=== PATIENT | female | born 1960 | race Caucasian/White ===

== ENCOUNTER 2018-12-17 13:04 | Emergency (ER) | payer OTHER ==
[~2018-12-17] VITALS: Ht 162.6 cm; Wt 140.6 kg
[2018-12-17 13:16] VITALS: BP 120/61
--- NOTE | 2018-12-17 13:30 | NUR ---
PATIENT AMBULATED TO BED 8
--- NOTE | 2018-12-17 13:46 | NUR ---
Pt c/o painful left lower rash with blisters started 2 days ago, seen by PMD yesterday and was given an ointment and "water pill" with no relief. Bilateral lower leg +4 edema with non-pitting noticed. Pt states "I have seen doctor for the water retention, but on one gave me any treatment." PATIENT STATES PAIN OF 8/10 AT THIS TIME; VSS; PATIENT POSITIONED FOR COMFORT; HOB ELEVATED; BEDRAILS UP X1; BED DOWN. ER MD MADE AWARE OF PT STATUS.
[2018-12-17] MEDS ORDERED: CLINDAMYCIN 600 MG/4 ML VIAL IM ONE (14:25)
[2018-12-17 14:45] VITALS: BP 121/53
--- NOTE | 2018-12-17 14:45 | NUR ---
Patient discharged with v/s stable. Written and verbal after care instructions given and explained. Patient alert, oriented and verbalized understanding of instructions. Ambulatory with steady gait. All questions addressed prior to discharge. ID band removed. Patient advised to follow up with PMD. Rx of Keflex, Bactrim, Motrin, and Tramadol given. Patient educated on indication of medication including possible reaction and side effects. Opportunity to ask questions provided and answered.
== END 2018-12-17 14:45 | disposition home or self-care (01) ==
LOC: MED 13:04
DX: L03.116 Cellulitis of left lower limb (principal); E11.9 Type 2 diabetes mellitus without complications
CPT/HCPCS: 96372; 99283; J3490

== ENCOUNTER 2018-12-22 19:01 | Inpatient (IN) | payer OTHER ==
[~2018-12-22] VITALS: Ht 167.6 cm; Wt 140.2 kg
[2018-12-22 19:06] VITALS: BP 134/77
--- NOTE | 2018-12-22 19:10 | NUR ---
PT TO BED 6 WITH STEADY GAIT
--- NOTE | 2018-12-22 19:15 | NUR ---
58 Y/O F PRESENTS TO THE ER C/O CELLULITIS L. LOWER LEG. PER PT "I HAD A CORTISONE SHOT AND HAD A RASH ON BILATERAL EXTREMITIES. MY RASH CLEARED UP, EXCEPT FOR MY LEFT LEG" I RUBBED HARMONY TREE OIL AND IT MADE IT WORSE. IT BLISTERED, POPPED AND STARTED TO DRAIN." PT CURRENTLY TAKING SULFAMETHOXAZONE E-TMP DS AND CEPHALEXIN CAPSULE. PT LLE WARM TO TOUCH. PAIN LEVEL 6/10, CRAMPING PAIN. NKA. MED HX: DM. SAFETY MEASURES IN PLACE. WAITING FOR ERMD TO EVALUATE PT.
--- NOTE | 2018-12-22 19:27 | NUR ---
RECEIVED PT FROM GUILLE RN PT IS AAOX4 AMBULATORY IV ON RT ARM INFUSING WELL NOT DISTRESS NOTED RELATIVE AT BED SIDE INITIAL ASSESSMENT DONE
--- NOTE | 2018-12-22 19:31 | NUR ---
Dr. Stone examining patient.
[2018-12-22] MEDS ORDERED: AMPICILLIN/SULBACTAM 3 GM VIAL IM ONE (19:40)
[2018-12-22] MEDS ORDERED: AMPICILLIN/SULBACTAM 3 GM in NACL 0.9% 100 ML IV ONE (19:50)
[2018-12-22 20:18] LABS: BASOPHILS # (AUTO) 0.1 K/uL (0.00-0.22); BASOPHILS % (AUTO) 0.9 % (0.0-2.0); EOSINOPHILS # (AUTO) 0.4 K/uL (0-0.4); EOSINOPHILS % (AUTO) 4.4 % (0.0-4.0); HEMATOCRIT 37.4 % (36-48); HEMOGLOBIN 12.5 g/dL (12.0-16.0); LYMPHOCYTES # (AUTO) 2.7 K/uL (2.5-16.5); MEAN CORPUSCULAR HEMOGLOBIN 30 pg (27-31); MEAN CORPUSCULAR HGB CONC 34 g/dL (33-37); MEAN CORPUSCULAR VOLUME 89.6 fL (80-94); MONOCYTES # (AUTO) 0.8 K/uL (0.8-1.0); MONOCYTES % (AUTO) 9.4 % (1.7-9.3); NEUTROPHILS # (AUTO) 4.5 K/uL (1.8-7.7); NEUTROPHILS % (AUTO) 53.3 % (42.2-75.2); PLATELET COUNT (AUTO) 357 K/uL (140-450); RED BLOOD CELL COUNT(AUTO) 4.18 MIL/uL (4.20-5.40); RED CELL DISTRIBUTION WIDTH 14.3 % (11.6-13.7); WHITE BLOOD COUNT (AUTO) 8.4 K/uL (4.8-10.8)
--- NOTE | 2018-12-22 20:52 | NUR ---
PT RESTING IN BED COMFORTABLY. VSS. WILL CONTINUE TO MONITOR.
[2018-12-22] MEDS ORDERED: SIMV40TA1 PO (21:08)
[2018-12-22] MEDS ORDERED: METF1000 PO (21:08)
[2018-12-22] MEDS ORDERED: PROP20TA29 PO (21:13)
[2018-12-22] MEDS ORDERED: GABA300C PO (21:13)
[2018-12-22] MEDS ORDERED: LISI5TAB18 PO (21:13)
[2018-12-22] MEDS ORDERED: DETLA4 PO (21:13)
[2018-12-22] MEDS ORDERED: FURO-572 PO (21:13)
[2018-12-22] MEDS ORDERED: METF1TAB34 PO (21:13)
--- NOTE | 2018-12-22 21:15 | NUR ---
PT AMBULATED TO RESTROOM
[2018-12-22 21:26] LABS: ANION GAP 13.5 (8-16); CARBON DIOXIDE 25.6 mmol/L (21-32); CREATININE 0.9 mg/dL (0.6-1.3); POTASSIUM 4.1 mmol/L (3.5-5.1)
[2018-12-22 21:31] LABS: ALBUMIN 3.2 g/dL (3.4-5.0); TOTAL BILIRUBIN 0.4 mg/dL (0.0-1.0)
--- NOTE | 2018-12-22 22:26 | NUR ---
PT AMBULATED TO RESTROOM
[2018-12-22] MEDS ORDERED: MORPHINE SULFATE 4 MG/ML SYR IVP PRN (22:40)
[2018-12-22] MEDS ORDERED: ONDANSETRON 4 MG/2 ML VIAL IVP PRN (22:40)
[2018-12-22] MEDS ORDERED: DEXTROSE 50% 50 ML SYR IVP PRN (22:40)
[2018-12-22] MEDS ORDERED: CLINDAMYCIN 600 MG in DEXTROSE 5% 50 ML IV SCH (23:00)
[2018-12-22 23:10] VITALS: BP 138/60
--- NOTE | 2018-12-22 23:10 | NUR ---
RECEIVED PT FROM ED VIA WHEELCHAIR; AWAKE, ALERT O X 4; WITH L LEG CELLULITIS;PT CAN AMBULATE IN THE ROOM; KEPT WATCH; WITH NS AT 75 ML HR ON THE RIGHT HAND G 22 PATENT AND INTACT. ORIENTED TO UNIT; MRSA SWAB DONE. PLACED IN LOW BED POSITION; CALL LIGHT WITHIN REACH.
--- NOTE | 2018-12-22 23:10 | NUR ---
Transfer of care AND report given to PAGE GEORGES
--- NOTE | 2018-12-22 23:14 | NUR ---
Patient will be admitted to care of Dr. Franklin. Admited to Med/Surg. Will go to room 111b. Belongings list completed. Report to PAGE Noriega
--- NOTE | 2018-12-23 00:10 | NUR ---
PT COMPLAINED OF COUGHING AND NOT ABLE TO BREATHE; PLACED O2 AT 2 LPM NC PRN; WILL CONTINUE TO MONITOR
[2018-12-23] MEDS ORDERED: CLINDAMYCIN 600 MG/4 ML VIAL ONE (00:32)
[2018-12-23] MEDS: NACL 0.9% 1,000 ML IV SCH ×3 (01:25→22:10)
[2018-12-23] MEDS: HYDROcodone/APAP 5/325 MG 1 TAB TAB PO PRN ×2 (01:30→22:10)
--- NOTE | 2018-12-23 01:30 | NUR ---
PT COMFORTABLE; NO COMPLAINTS OF RESPIRATORY DISTRESS; STATES FEELING A LOT BETTER
--- NOTE | 2018-12-23 02:50 | NUR ---
PT TRYING TO GET SOME SLEEP; BUT AWAKENS EASILY; NO COMPLAINTS AT THIS TIME WILL CONTINUE TO MONITOR
[2018-12-23 04:00] VITALS: BP 140/60
--- NOTE | 2018-12-23 04:55 | NUR ---
STILL SLEEPING COMFORTABLY, NO COMPLAINTS AT THIS TIME; WILL CONTINUE TO MONITOR
[2018-12-23] MEDS: BLOOD GLUCOSE MONITORING 1 DEV DEV FS SCH ×4 (06:37→21:00)
[2018-12-23] MEDS: INSULIN LISPRO SLIDING SCALE 100 UNITS/ML VIAL SUBQ PRN ×3 (06:38→18:25)
--- NOTE | 2018-12-23 07:18 | NUR ---
ENDORSED TO AM SHIFT NURSE. PT AWAKE, ALERT ORIENTED X 4 NOT IN RESPIRATORY DISTRESS .PT IN STABLE CONDITION AT THIS TIME. INFORMED AM NURSE PT WANTS TO HAVE ANTI-DIARRHEAL MEDS FOR HER IBS
[2018-12-23 07:35] LABS: BASOPHILS % (AUTO) 0.4 % (0.0-2.0); EOSINOPHILS # (AUTO) 0.4 K/uL (0-0.4); EOSINOPHILS % (AUTO) 5.1 % (0.0-4.0); HEMATOCRIT 36.6 % (36-48); LYMPHOCYTES # (AUTO) 2.1 K/uL (2.5-16.5); LYMPHOCYTES % (AUTO) 27.8 % (20.5-51.1); MEAN CORPUSCULAR HEMOGLOBIN 30 pg (27-31); MEAN CORPUSCULAR HGB CONC 33 g/dL (33-37); MEAN CORPUSCULAR VOLUME 90.4 fL (80-94); MONOCYTES # (AUTO) 0.7 K/uL (0.8-1.0); MONOCYTES % (AUTO) 10.1 % (1.7-9.3); NEUTROPHILS # (AUTO) 4.2 K/uL (1.8-7.7); NEUTROPHILS % (AUTO) 56.6 % (42.2-75.2); PLATELET COUNT (AUTO) 331 K/uL (140-450); RED BLOOD CELL COUNT(AUTO) 4.05 MIL/uL (4.20-5.40); RED CELL DISTRIBUTION WIDTH 14.2 % (11.6-13.7); WHITE BLOOD COUNT (AUTO) 7.4 K/uL (4.8-10.8)
--- NOTE | 2018-12-23 07:35 | NUR ---
REPORT RECEIVED FROM ATOMIC PROCESS ENGINEER NURSE, PT AWAKE ALERT, RESP EVEN UNLABORED, SKIN WARM DRY COLOR WNL, PT DENIES PAIN NOW, POC REVIEWED, PT DOES NOT WANT HER RIGHT SIDE RAIL UP, BECAUSE SHE GOES TO BATHROOM OFTEN, EDUCATED PT OF SAFETY, PT REFUSES.
[2018-12-23 07:47] LABS: ANION GAP 12.9 (8-16); CARBON DIOXIDE 25.4 mmol/L (21-32); CREATININE 0.7 mg/dL (0.6-1.3); POTASSIUM 4.3 mmol/L (3.5-5.1)
[2018-12-23 07:49] LABS: MAGNESIUM 1.8 mg/dL (1.8-2.4); PHOSPHORUS 3.9 mg/dL (2.5-4.9)
[2018-12-23 08:00] VITALS: BP 147/89
--- NOTE | 2018-12-23 08:08 | NUR ---
PATIENT HAS BEEN SCREENED AND CATEGORIZED HIGH NUTRITION RISK. PATIENT WILL BE SEEN WITHIN 1-2 DAYS OF ADMISSION. 12/23/18-12/24/[address]
[2018-12-23] MEDS: GABAPENTIN 300 MG CAP PO SCH (08:54)
[2018-12-23] MEDS: metFORMIN 500 MG TAB PO SCH ×2 (08:58→18:30)
[2018-12-23] MEDS: FUROSEMIDE 20 MG TAB PO SCH (08:58)
[2018-12-23] MEDS: LISINOPRIL 5 MG TAB PO SCH (08:58)
[2018-12-23] MEDS: PROPRANOLOL 20 MG TAB PO SCH (08:59)
[2018-12-23] MEDS ORDERED: [UNRECOGNIZED DRUG - OTHER] PO SCH (09:00)
[2018-12-23] MEDS ORDERED: PIOGLITAZONE HCL PO SCH (09:00)
[2018-12-23] MEDS ORDERED: METFORMIN HCL PO SCH (09:00)
[2018-12-23] MEDS: TOLTERODINE LA 4 MG CAPER PO SCH (09:06)
[2018-12-23] MEDS: ACETAMINOPHEN 325 MG TAB PO PRN (09:06)
[2018-12-23] MEDS: PIOGLITAZONE 15 MG TAB PO SCH (09:06)
--- NOTE | 2018-12-23 10:20 | NUR ---
PT UP AMBULATING IN ROOM WITH STEADY GAIT,
--- NOTE | 2018-12-23 14:20 | NUR ---
CONTACTED PATIENT'S PCP'S OFFICE DR. HOLLIS AT [phone], ABLE TO SPEAK TO TAYLOR. SHE PROVIDED ME WITH DEC 28, 2018 AT 1400PM. ADDR[place] TO THE CLINIC IS [address] [place] [address]. COPY OF THE APPOINTMENT PROVIDED TO THE PATIENT. Addendum: 12/28/18 at 1059 by Patience Muniz CM CONTACTED PCP'S OFFICE, ABLE TO SPEAK TO TAYLOR TO CANCEL APPOINTMENT DUE TO PATIENT IS STILL IN PATIENT. SHE STATED TO HAVE THE PATIENT TO CALL TO RESCHEDULE THE APPOINTMENT.
--- NOTE | 2018-12-23 14:20 | NUR ---
DR TEMPLE AT BEDSIDE
[2018-12-23] MEDS ORDERED: VANCOMYCIN PER PHARMACY MC PRN (14:25)
--- NOTE | 2018-12-23 15:31 | NUR ---
12/23/18 RD INITIAL ASSESSMENT COMPLETED PLEASE REFER TO NUTRITION ASSESSMENT UNDER CARE ACTIVITY FOR ESTIMATED NUTRITIONAL NEEDS. [facility]. [facility] TOL[facility] 2. FOLLOW UP WITH DIABETES NUTRITION EDUCATION 3. RD TO FOLLOW-UP 5-7 DAYS, LOW RISK FATMATA LANDA, RD
[2018-12-23 16:00] VITALS: BP 101/58
[2018-12-23] MEDS: VANCOMYCIN 1,250 MG in DEXTROSE 5% 250 ML IV SCH (18:30)
--- NOTE | 2018-12-23 18:30 | NUR ---
ADMINISTERED SCHEDULED MED PER MD ORDER, PATIENT TOLERATED WELL. MED EDUCATION PROVIDED TO PATIENT AND PATIENT VERBALIZED UNDERSTANDING. PATIENT IS TALKING ON THE PHONE AT THIS TIME. NO SIGNS OF DISTRESS NOTED. SAFETY MEASURES IN PLACE. BED IN LOW POSITION AND CALL LIGHT WITHIN REACH. INSTRUCTED PATIENT TO USE THE CALL LIGHT FOR ANY ASSISTANCE AND PATIENT WAS AWARE.
--- NOTE | 2018-12-23 19:20 | NUR ---
REPORT GIVEN TO ROLL REPAIRER NURSE, PT IN STABLE CONDITION
--- NOTE | 2018-12-23 19:26 | NUR ---
RECEIVED PT FROM GUILLE RN PT IS AAOX4 AMBULATORYIV ON RT ARM INFUSING WELL DENIES ANY PAIN I, RELATIVE AT BED SIDE INITIAL ASSESSMENT DONE
--- NOTE | 2018-12-23 22:10 | NUR ---
BLOOD SUGAR TEST 131 NOT COVERAGE PT
[2018-12-23] MEDS: SIMVASTATIN 40 MG TAB PO SCH (22:11)
[2018-12-24] VITALS: BP 101/56
--- NOTE | 2018-12-24 01:00 | NUR ---
PT SLEEPING WELL NOT DISTRESS NOTED
[2018-12-24] MEDS: NACL 0.9% 1,000 ML IV SCH (01:16)
[2018-12-24] MEDS: VANCOMYCIN 1,250 MG in DEXTROSE 5% 250 ML IV SCH ×2 (02:20→10:49)
--- NOTE | 2018-12-24 03:12 | NUR ---
PT REMAIN STABLE , VOIDING WELL PT AMBULATES TO THE RESTROOM IV ON RT HAND INFUSING WELL
--- NOTE | 2018-12-24 04:48 | NUR ---
PT VOIDING WELL NOT DITRESS NOTED IV ON RT ARM INFUSING WELL, DENIES ANY PAIN AT THIS TIME
[2018-12-24] MEDS: BLOOD GLUCOSE MONITORING 1 DEV DEV FS SCH ×4 (06:00→21:00)
[2018-12-24] MEDS: HYDROcodone/APAP 5/325 MG 1 TAB TAB PO PRN ×2 (06:04→23:22)
--- NOTE | 2018-12-24 06:08 | NUR ---
BLOOD SUGAR 149 NOT COVERAGE PT RESTING ON BED PT JULITO BE ENDORSED TO DAY SHIFT NURSE FOR CONTINUE OF CARE
[2018-12-24 07:03] LABS: BASOPHILS % (AUTO) 0.5 % (0.0-2.0); EOSINOPHILS # (AUTO) 0.3 K/uL (0-0.4); EOSINOPHILS % (AUTO) 5.6 % (0.0-4.0); HEMATOCRIT 37.4 % (36-48); HEMOGLOBIN 12.2 g/dL (12.0-16.0); LYMPHOCYTES # (AUTO) 2.1 K/uL (2.5-16.5); LYMPHOCYTES % (AUTO) 33.2 % (20.5-51.1); MEAN CORPUSCULAR HEMOGLOBIN 30 pg (27-31); MEAN CORPUSCULAR HGB CONC 33 g/dL (33-37); MEAN CORPUSCULAR VOLUME 90.9 fL (80-94); MONOCYTES # (AUTO) 0.7 K/uL (0.8-1.0); MONOCYTES % (AUTO) 11.2 % (1.7-9.3); NEUTROPHILS # (AUTO) 3.1 K/uL (1.8-7.7); NEUTROPHILS % (AUTO) 49.5 % (42.2-75.2); PLATELET COUNT (AUTO) 327 K/uL (140-450); RED BLOOD CELL COUNT(AUTO) 4.12 MIL/uL (4.20-5.40); RED CELL DISTRIBUTION WIDTH 14.1 % (11.6-13.7); WHITE BLOOD COUNT (AUTO) 6.2 K/uL (4.8-10.8)
[2018-12-24 07:18] LABS: MAGNESIUM 1.8 mg/dL (1.8-2.4); PHOSPHORUS 3.8 mg/dL (2.5-4.9)
[2018-12-24 07:19] LABS: CREATININE 0.8 mg/dL (0.6-1.3)
--- NOTE | 2018-12-24 07:28 | NUR ---
REPORT RECEIVED FROM MACHINE PACKAGING TECHNICIAN NURSE, PT RESTING QUIETLY IN NO DISTRESS, SPEAKS CLEARLY, RESP EVEN UNLABORED, DENIES PAIN OR DISCOMFORT, LEFT LEG REDNESS POC REVIEWED, NO IMMEDIATE NEEDS AT THIS TIME, LEFT LEG ELEVATED, PT REFUSES TO RAISE THE SIDE RAIL, PT EDUCATED ON SAFETY MEASURES, BUT STILL REFUSES TO GET SIDE RAILS UP. CALL DUNBAR AT BEDSIDE.
[2018-12-24 08:00] VITALS: BP 107/50
[2018-12-24] MEDS: PROPRANOLOL 20 MG TAB PO SCH (09:00)
[2018-12-24] MEDS: LISINOPRIL 5 MG TAB PO SCH (09:00)
[2018-12-24] MEDS: PIOGLITAZONE 15 MG TAB PO SCH (09:10)
[2018-12-24] MEDS: GABAPENTIN 300 MG CAP PO SCH (09:11)
[2018-12-24] MEDS: TOLTERODINE LA 4 MG CAPER PO SCH (09:11)
[2018-12-24] MEDS: metFORMIN 500 MG TAB PO SCH ×2 (09:11→17:10)
[2018-12-24] MEDS: FUROSEMIDE 20 MG TAB PO SCH (09:12)
--- NOTE | 2018-12-24 10:40 | NUR ---
SCHEDULED VANCO STARTED, IV INFUSING WELL, IV SITE WNL, PT'S DAUGHTER AT BEDSIDE, PT UP TO BATHROOM WITH STEADY GAIT.
[2018-12-24] MEDS: INSULIN LISPRO SLIDING SCALE 100 UNITS/ML VIAL SUBQ PRN ×2 (12:03→23:19)
[2018-12-24] MEDS ORDERED: MAGNESIUM OXIDE 400 MG TAB PO SCH (13:00)
[2018-12-24 16:00] VITALS: BP 104/54
--- NOTE | 2018-12-24 17:55 | NUR ---
LAB CALLED WITH VANCO TROUGH RESULTS 22.2. [facility] PHARMACIST [facility] NOTIFIED, WILL HOLD 1800 VANCO DOSE.
--- NOTE | 2018-12-24 19:20 | NUR ---
REPORT RECIEVED FROM GUILLE ABEL. pT AAOX4 IV PATENT. TATO SIFUENTES. CELLULITIS LLE. NO DISTRESS NOTED . ASSESSMENT COMPLETE
[2018-12-24 20:00] VITALS: BP 126/58
[2018-12-24] MEDS: SIMVASTATIN 40 MG TAB PO SCH (20:19)
--- NOTE | 2018-12-24 22:00 | NUR ---
PTWATCHING TV REMAIN STABLE NOT DISTRESS NOTED
[2018-12-25] VITALS: BP 110/56
--- NOTE | 2018-12-25 03:09 | NUR ---
AFTER PAIN MEDIC GIVEN PT DENIES ANY PAIN, AMBULATES TO THE RESTROOM, NOT DISTRESS NOTED
--- NOTE | 2018-12-25 04:50 | NUR ---
SPONGE BATH GIVEN LINEN CHANGED REMAIN STABLE
[2018-12-25] MEDS: BLOOD GLUCOSE MONITORING 1 DEV DEV FS SCH ×4 (06:05→21:48)
--- NOTE | 2018-12-25 06:18 | NUR ---
BLOOD SUGAR TEST 132 NOT COVERAGE PT WILL BE ENDORSED TO DAY SHIFT NURSE FOR CONTINUE OF CARE
--- NOTE | 2018-12-25 07:25 | NUR ---
REPORT RECEIVED FROM HOUSE WORKER NURSE AT BEDSIDE FOR CONTINUITY OF CARE, PT AWAKE AND ALERT, RESTING QUIETLY IN NO DISTRESS, RESPIRATIONS EVEN AND UNLABORED ON ROOM AIR, DENIES PAIN OR DISCOMFORT, NO IMMEDIATE NEEDS AT THIS TIME, LEFT LEG ELEVATED, PT REFUSES TO RAISE RIGHT SIDE RAIL, PT EDUCATED ON SAFETY MEASURES, BUT STILL REFUSES TO GET SIDE RAILS UP. UPDATED BOARD. UPDATED PATIENT ON PLAN OF CARE. SHE VERBALIZED UNDERSTANDING. IV SITE INTACT, ASYMPTOMATIC, SALINE LOCKED. CALL DUNBAR AT BEDSIDE. WILL CONTINUE TO MONITOR PATIENT.
[2018-12-25 08:00] VITALS: BP 129/69
[2018-12-25 08:21] LABS: ANION GAP 16.2 (8-16); CARBON DIOXIDE 26.1 mmol/L (21-32); CREATININE 0.7 mg/dL (0.6-1.3)
[2018-12-25 08:26] LABS: MAGNESIUM 1.9 mg/dL (1.8-2.4); PHOSPHORUS 4.1 mg/dL (2.5-4.9)
[2018-12-25 08:39] LABS: POTASSIUM 5.3 mmol/L (3.5-5.1)
[2018-12-25] MEDS: PROPRANOLOL 20 MG TAB PO SCH (08:57)
[2018-12-25] MEDS: PIOGLITAZONE 15 MG TAB PO SCH (08:57)
[2018-12-25] MEDS: LISINOPRIL 5 MG TAB PO SCH (08:58)
[2018-12-25] MEDS: FUROSEMIDE 20 MG TAB PO SCH (08:58)
[2018-12-25] MEDS: GABAPENTIN 300 MG CAP PO SCH (08:58)
[2018-12-25] MEDS: metFORMIN 500 MG TAB PO SCH ×2 (08:58→17:09)
[2018-12-25] MEDS: TOLTERODINE LA 4 MG CAPER PO SCH (08:58)
--- NOTE | 2018-12-25 08:58 | NUR ---
ORDERED MEDICATIONS GIVEN. PATIENT TOLERATING THEM WELL. NO COMPLAINTS AT THIS TIME. CALL LIGHT WITHIN REACH, WILL CONTINUE TO MONITOR PATIENT.
[2018-12-25] MEDS: HYDROcodone/APAP 5/325 MG 1 TAB TAB PO PRN ×2 (09:08→22:09)
--- NOTE | 2018-12-25 09:08 | NUR ---
PRN PAIN MEDICATION GIVEN FOR C/O PAIN OF LEFT LOWER EXTREMITY. PATIENT TOLERATING IT WELL. NO COMPLAINTS AT THIS TIME. CALL LIGHT WITHIN REACH, WILL CONTINUE TO MONITOR PATIENT.
[2018-12-25 09:58] LABS: BASOPHILS % (AUTO) 0.6 % (0.0-2.0); EOSINOPHILS # (AUTO) 0.2 K/uL (0-0.4); EOSINOPHILS % (AUTO) 4.3 % (0.0-4.0); HEMATOCRIT 35.9 % (36-48); HEMOGLOBIN 11.8 g/dL (12.0-16.0); LYMPHOCYTES # (AUTO) 1.5 K/uL (2.5-16.5); LYMPHOCYTES % (AUTO) 27.9 % (20.5-51.1); MEAN CORPUSCULAR HEMOGLOBIN 30 pg (27-31); MEAN CORPUSCULAR HGB CONC 33 g/dL (33-37); MEAN CORPUSCULAR VOLUME 90.6 fL (80-94); MONOCYTES # (AUTO) 0.6 K/uL (0.8-1.0); MONOCYTES % (AUTO) 11.2 % (1.7-9.3); PLATELET COUNT (AUTO) 297 K/uL (140-450); RED BLOOD CELL COUNT(AUTO) 3.97 MIL/uL (4.20-5.40); RED CELL DISTRIBUTION WIDTH 14.2 % (11.6-13.7); WHITE BLOOD COUNT (AUTO) 5.4 K/uL (4.8-10.8)
[2018-12-25] MEDS: VANCOMYCIN 1,250 MG in DEXTROSE 5% 250 ML IV SCH ×2 (10:03→22:00)
[2018-12-25] MEDS: INSULIN LISPRO SLIDING SCALE 100 UNITS/ML VIAL SUBQ PRN ×2 (12:03→21:54)
--- NOTE | 2018-12-25 12:03 | NUR ---
BLOOD SUGAR 203, COVERAGE GIVEN. PATIENT TOLERATED IT WELL. PATIENT SITTING UP TO EAT LUNCH. NO COMPLAINTS AT THIS TIME. CALL LIGHT WITHIN REACH. WILL CONTINUE TO MONITOR PATIENT.
--- NOTE | 2018-12-25 13:40 | NUR ---
DR TEMPLE IN TO SEE THE PATIENT. WILL WAIT FOR HIS NEW ORDERS.
[2018-12-25] MEDS ORDERED: SODIUM POLYSTYRENE 15 GM/60 ML UDBTL PO SCH (14:00)
--- NOTE | 2018-12-25 14:02 | NUR ---
NEW MEDICATION IN. ANSWERED PATIENT'S QUESTIONS ABOUT NEW MEDICATIONS, INDICATIONS, SIDE EFFECTS. PATIENT VERBALIZED UNDERSTANDING AND AGREED TO TAKE MEDICATION. ORDERED MEDICATION GIVEN. PATIENT TOLERATING IT. ULTRA SOUND IN TO DO US. WILL WAIT FOR RESULTS.
[2018-12-25 16:00] VITALS: BP 92/45
--- NOTE | 2018-12-25 17:09 | NUR ---
ORDERED MEDICATION GIVEN. PATIENT TOLERATED IT WELL. NO COMPLAINTS AT THIS TIME. FAMILY AT BEDSIDE. WILL CONTINUE TO MONITOR PATIENT.
--- NOTE | 2018-12-25 19:12 | NUR ---
REPORT GIVEN TO PRISON PSYCHIATRIST NURSE AT BEDSIDE FOR CONTINUITY OF CARE. PATIENT IN STABLE CONDITION.
--- NOTE | 2018-12-25 19:15 | NUR ---
RECEIVED BEDSIDE REPORT FROM AM SHIFT RN ZIGGY, FOR PT'S CONTINUITY OF CARE. PT IS AAOX4, IS ON ROOM AIR, HAS RIGHT HAND 22G SALINE LOCK, DENIES PAIN AT THIS TIME. EXPLAINED TO PT THE COMMUNITY FUNDRAISER ROUTINE, PT VERBALIZED UNDERSTANDING. SAFETY MEASURES IN PLACE, CALL LIGHT IS WITHIN REACH. WILL MONITOR PT THROUGHOUT SHIFT.
--- NOTE | 2018-12-25 19:18 | NUR ---
RECEIVED CALL FROM LAB, PATIENT CDIFF POSITION. ENDORSED TO KIT PLANNER NURSE.
--- NOTE | 2018-12-25 19:30 | NUR ---
PAGED DR. CHILD TO REPORT LAB RESULT FOR CDIFF.
--- NOTE | 2018-12-25 19:35 | NUR ---
SPOKE TO DR. CHILD, NEW ORDER OF METRONIDAZOLE 500MG IV Q8H, WILL CARRY OUT NEW ORDER.
--- NOTE | 2018-12-25 19:40 | NUR ---
ISOLATION PROTOCOL INITIATED AND IMPLEMENTED.
[2018-12-25] MEDS: SIMVASTATIN 40 MG TAB PO SCH (21:58)
--- NOTE | 2018-12-25 21:58 | NUR ---
ADMINISTERED SCHEDULED PO AND ABX MEDICATIONS ORDERED. BLOOD GLUCOSE CHECKED AND CHARTED. ADMINISTERED SUBQ INSULIN PER SLIDING SCALE ORDERED. PT TOLERATED THEM WELL. WILL CONTINUE TO MONITOR PT.
--- NOTE | 2018-12-25 22:09 | NUR ---
PT C/O LEFT LEG PAIN 09/16. ADMINISTERED PRN PO PAIN MEDICATION ORDERED. PT TOLERATED IT WELL. WILL CONTINUE TO MONITOR PT.
[2018-12-25] MEDS: metroNIDAZOLE 500 MG/NS PREMIX 100 ML IV SCH (23:40)
--- NOTE | 2018-12-25 23:40 | NUR ---
ADMINISTERED NEW IV ABX ORDERED. PT TOLERATED IT WELL, NO REACTIONS PER PT. WILL CONTINUE TO MONITOR PT.
[2018-12-26] VITALS: BP 107/37
--- NOTE | 2018-12-26 | NUR ---
VS CHECKED AND CHARTED. NO NOTED REACTIONS FROM IV ABX. PT DENIES ANY PAIN AT THIS TIME. WILL CONTINUE TO MONITOR PT.
--- NOTE | 2018-12-26 02:30 | NUR ---
MADE ROUNDS. PT ASLEEP WITH NO SIGNS OF DISTRESS.
--- NOTE | 2018-12-26 04:37 | NUR ---
MADE ROUNDS. PT ASLEEP WITH NO SIGNS OF DISTRESS.
[2018-12-26] MEDS: BLOOD GLUCOSE MONITORING 1 DEV DEV FS SCH ×4 (06:24→20:18)
[2018-12-26] MEDS: metroNIDAZOLE 500 MG/NS PREMIX 100 ML IV SCH ×2 (06:30→15:45)
--- NOTE | 2018-12-26 06:30 | NUR ---
ADMINISTERED SCHEDULED IV ABX ORDERED. PT WENT TO THE RESTROOM, TOLERATED ACTIVITY WELL. LAB PERSONNEL AT BEDSIDE AWAITING TO DRAW BLOOD. PT DENIES ANY PAIN, STATES GETS INTERMITTENT DRY COUGH AND REQUESTING FOR ANY POSSIBLE MEDICATION SHE COULD GET FOR THIS. WILL ENDORSE TO AM SHIFT RN FOR PT'S CONTINUITY OF CARE.
--- NOTE | 2018-12-26 07:15 | NUR ---
RECEIVED REPORT FROM SOFTWARE QUALITY ASSURANCE ANALYST NURSE TOMMY FOR CONTINUITY OF CARE. PT IN STABLE CONDITION. RESPIRATIONS EVEN AND UNLABORED, ROOM AIR. IV INTACT AND PATENT. SAFETY MEASURES IN PLACE. BED IN LOW POSITION. CALL LIGHT AT BEDSIDE. WILL CONTINUE TO MONITOR.
[2018-12-26 07:28] LABS: BASOPHILS % (AUTO) 0.6 % (0.0-2.0); EOSINOPHILS # (AUTO) 0.3 K/uL (0-0.4); EOSINOPHILS % (AUTO) 4.9 % (0.0-4.0); HEMATOCRIT 36.3 % (36-48); HEMOGLOBIN 11.9 g/dL (12.0-16.0); MEAN CORPUSCULAR HEMOGLOBIN 30 pg (27-31); MEAN CORPUSCULAR HGB CONC 33 g/dL (33-37); MONOCYTES # (AUTO) 0.6 K/uL (0.8-1.0); MONOCYTES % (AUTO) 10.5 % (1.7-9.3); NEUTROPHILS # (AUTO) 3.1 K/uL (1.8-7.7); PLATELET COUNT (AUTO) 314 K/uL (140-450); RED BLOOD CELL COUNT(AUTO) 3.99 MIL/uL (4.20-5.40); RED CELL DISTRIBUTION WIDTH 14.2 % (11.6-13.7)
[2018-12-26 08:00] VITALS: BP 132/65
[2018-12-26 08:39] LABS: PHOSPHORUS 4.2 mg/dL (2.5-4.9)
[2018-12-26 08:53] LABS: ANION GAP 11.6 (8-16); CARBON DIOXIDE 31.9 mmol/L (21-32); CREATININE 0.8 mg/dL (0.6-1.3); POTASSIUM 4.5 mmol/L (3.5-5.1)
--- NOTE | 2018-12-26 09:33 | NUR ---
PT LYING IN BED EATING BREAKFAST IN STABLE CONDITION. BED IN LOW POSITION. CALL LIGHT AT BEDSIDE. WILL CONTINUE TO MONITOR.
[2018-12-26] MEDS: ACETAMINOPHEN 325 MG TAB PO PRN (10:42)
[2018-12-26] MEDS: VANCOMYCIN 1,250 MG in DEXTROSE 5% 250 ML IV SCH ×2 (10:42→21:47)
--- NOTE | 2018-12-26 10:42 | NUR ---
GAVE TYLENOL FOR HEADACHE PER PT REQUEST. PT TOLERATED WELL.
[2018-12-26] MEDS: TOLTERODINE LA 4 MG CAPER PO SCH (10:49)
[2018-12-26] MEDS: metFORMIN 500 MG TAB PO SCH ×2 (10:49→17:46)
[2018-12-26] MEDS: PROPRANOLOL 20 MG TAB PO SCH (10:49)
[2018-12-26] MEDS: FUROSEMIDE 20 MG TAB PO SCH (10:49)
[2018-12-26] MEDS: GABAPENTIN 300 MG CAP PO SCH (10:49)
[2018-12-26] MEDS: LISINOPRIL 5 MG TAB PO SCH (10:50)
[2018-12-26] MEDS: PIOGLITAZONE 15 MG TAB PO SCH (10:50)
[2018-12-26] MEDS: ENOXAPARIN 40 MG/0.4 ML SYR SUBQ SCH (10:52)
--- NOTE | 2018-12-26 11:34 | NUR ---
PT LYING IN BED IN STABLE CONDITION. RESPIRATIONS EVEN AND UNLABORED.
--- NOTE | 2018-12-26 14:15 | NUR ---
PT TALKING WITH FAMILY AT BEDSIDE. RESPIRATIONS EVEN AND UNLABORED. BED IN LOW POSITION. CALL LIGHT AT BEDSIDE. WILL CONTINUE TO MONITOR.
[2018-12-26] MEDS: INSULIN LISPRO SLIDING SCALE 100 UNITS/ML VIAL SUBQ PRN ×2 (15:45→21:35)
[2018-12-26 16:00] VITALS: BP 143/84
--- NOTE | 2018-12-26 16:43 | NUR ---
PT LYING IN BED WATCHING TV. BED IN LOW POSITION. CALL LIGHT AT BEDSIDE. WILL CONTINUE TO MONITOR.
--- NOTE | 2018-12-26 18:31 | NUR ---
NEW IV 22G LEFT HAND. REMOVED 22G RIGHT HAND PT C/O PAIN WITH FLUSHING. NO INJURY, REDNESS, OR PAIN NOTED AT SITE.
--- NOTE | 2018-12-26 19:15 | NUR ---
GAVE REPORT TO ENERGY ATTORNEY NURSE TOMMY FOR CONTINUITY OF CARE. PT IN STABLE CONDITION.
--- NOTE | 2018-12-26 19:20 | NUR ---
RECEIVED BEDSIDE REPORT FROM AM SHIFT RN PRIYANKA, FOR PT'S CONTINUITY OF CARE. PT AAOX4, IS ON ROOM AIR, HAS LEFT HAND 22G SALINE LOCK, DENIES PAIN AT THIS TIME. PT AWARE OF THE BRAKE OPERATOR SHEET METAL ROUTINE. SAFETY MEASURES IN PLACE, CONTACT ISOLATION PRECAUTION IN PLACE, AND CALL LIGHT IS WITHIN REACH. WILL MONITOR PT THROUGHOUT THE SHIFT.
[2018-12-26] MEDS: SIMVASTATIN 40 MG TAB PO SCH (20:16)
[2018-12-26] MEDS: HYDROcodone/APAP 5/325 MG 1 TAB TAB PO PRN (20:17)
--- NOTE | 2018-12-26 20:20 | NUR ---
BLOOD GLUCOSE CHECKED AND CHARTED. ADMINISTERED SCHEDULED PO MEDICATION ORDERED. PT C/O LEG PAIN 09/16, ADMINISTERED PO PRN PAIN MEDICATION ORDERED. PT TOLERATED THEM WELL. WILL CONTINUE TO MONITOR PT.
--- NOTE | 2018-12-26 21:47 | NUR ---
ADMINISTERED SCHEDULED IV ABX AND SUBQ INSULIN PER SLIDING SCALE ORDERED. PT TOLERATED THEM WELL. ASSISTED PT TO RESTROOM, PT TOLERATED ACTIVITY WELL. DENIES ANY PAIN AT THIS TIME.
[2018-12-26] MEDS ORDERED: metroNIDAZOLE 500 MG TAB PO SCH (23:00)
--- NOTE | 2018-12-26 23:29 | NUR ---
ADMINISTERED SCHEDULED PO MEDICATION ORDERED. VS CHECKED AND CHARTED. PT DENIES ANY PAIN AT THIS TIME. ASSISTED PT TO THE RESTROOM. WILL CONTINUE TO MONITOR PT.
[2018-12-27] VITALS: BP 124/61
--- NOTE | 2018-12-27 02:00 | NUR ---
MADE ROUNDS. PT LYING DOWN ASLEEP WITH NO SIGNS OF DISTRESS. WILL CONTINUE TO MONITOR PT.
--- NOTE | 2018-12-27 03:35 | NUR ---
PT ASLEEP WITH NO SIGNS OF DISTRESS. WILL CONTINUE TO MONITOR.
[2018-12-27] MEDS: BLOOD GLUCOSE MONITORING 1 DEV DEV FS SCH ×4 (06:24→20:53)
[2018-12-27] MEDS: INSULIN LISPRO SLIDING SCALE 100 UNITS/ML VIAL SUBQ PRN ×4 (06:26→21:48)
--- NOTE | 2018-12-27 06:30 | NUR ---
BLOOD GLUCOSE CHECKED AND CHARTED. ADMINISTERED SUBQ INSULIN PER SLIDING SCALE ORDERED. PT TOLERATED IT WELL. PT DENIES ANY PAIN AT THIS TIME. PT'S NEEDS ARE MET. PT IN STABLE CONDITION. WILL ENDORSE TO AM SHIFT RN FOR PT'S CONTINUITY OF CARE.
[2018-12-27 06:40] LABS: BASOPHILS % (AUTO) 0.6 % (0.0-2.0); EOSINOPHILS # (AUTO) 0.3 K/uL (0-0.4); EOSINOPHILS % (AUTO) 5.8 % (0.0-4.0); HEMATOCRIT 36.8 % (36-48); LYMPHOCYTES % (AUTO) 35.8 % (20.5-51.1); MEAN CORPUSCULAR HEMOGLOBIN 30 pg (27-31); MEAN CORPUSCULAR HGB CONC 33 g/dL (33-37); MEAN CORPUSCULAR VOLUME 91.3 fL (80-94); MONOCYTES # (AUTO) 0.6 K/uL (0.8-1.0); MONOCYTES % (AUTO) 11.2 % (1.7-9.3); NEUTROPHILS # (AUTO) 2.6 K/uL (1.8-7.7); NEUTROPHILS % (AUTO) 46.6 % (42.2-75.2); PLATELET COUNT (AUTO) 317 K/uL (140-450); RED BLOOD CELL COUNT(AUTO) 4.03 MIL/uL (4.20-5.40); RED CELL DISTRIBUTION WIDTH 14.4 % (11.6-13.7); WHITE BLOOD COUNT (AUTO) 5.6 K/uL (4.8-10.8)
[2018-12-27 07:00] LABS: MAGNESIUM 1.9 mg/dL (1.8-2.4); PHOSPHORUS 3.8 mg/dL (2.5-4.9)
--- NOTE | 2018-12-27 07:50 | NUR ---
RECEIVED REPORT FROM ENGINEER FIRST ASSISTANT NURSE NORBERTO FOR CONTINUITY OF CARE. PT IN STABLE CONDITION. RESPIRATIONS EVEN AND UNLABORED, ROOM AIR. IV INTACT AND PATENT. SAFETY MEASURES IN PLACE. BED IN LOW POSITION. CALL LIGHT AT BEDSIDE. WILL CONTINUE TO MONITOR.
[2018-12-27 08:00] VITALS: BP 139/69
[2018-12-27] MEDS: ENOXAPARIN 40 MG/0.4 ML SYR SUBQ SCH (08:53)
[2018-12-27] MEDS: TOLTERODINE LA 4 MG CAPER PO SCH (08:57)
[2018-12-27] MEDS: PROPRANOLOL 20 MG TAB PO SCH (08:58)
[2018-12-27] MEDS: metroNIDAZOLE 500 MG TAB PO SCH ×3 (08:58→17:24)
[2018-12-27] MEDS: PIOGLITAZONE 15 MG TAB PO SCH (08:59)
[2018-12-27] MEDS: GABAPENTIN 300 MG CAP PO SCH (08:59)
[2018-12-27] MEDS: LISINOPRIL 5 MG TAB PO SCH (08:59)
[2018-12-27] MEDS: metFORMIN 500 MG TAB PO SCH ×2 (08:59→17:24)
[2018-12-27] MEDS: FUROSEMIDE 20 MG TAB PO SCH (09:00)
--- NOTE | 2018-12-27 09:05 | NUR ---
GAVE ORDERED DUE MEDICATIONS AT THIS TIME. PT TOLERATED WELL. WILL CONTINUE TO MONITOR.
--- NOTE | 2018-12-27 10:00 | NUR ---
VANCO TROUGH DRAWN AT THIS TIME. WILL WAIT FOR RESULTS BEFORE VANCOMYCIN ADMINISTRATION AT 1000.
[2018-12-27 11:05] LABS: ANION GAP 11.2 (8-16); CARBON DIOXIDE 29.9 mmol/L (21-32); CREATININE 0.8 mg/dL (0.6-1.3); POTASSIUM 4.1 mmol/L (3.5-5.1)
--- NOTE | 2018-12-27 11:30 | NUR ---
VANCO TROUGH 10.0. INFORMED PHARMACY ([facility]) OKAY TO GIVE VANCOMYCIN IV BAG. PT IN STABLE CONDITION.
[2018-12-27] MEDS: VANCOMYCIN 1,250 MG in DEXTROSE 5% 250 ML IV SCH ×2 (11:35→21:54)
--- NOTE | 2018-12-27 11:40 | NUR ---
22G LEFT FOREARM REMOVED, LUMEN INTACT. NO INJURY, REDNESS NOTED AT THIS TIME. NEW IV INSERTED 20G RIGHT FOREARM. PT TOLERATED WELL. WILL CONTINUE TO MONITOR. BED IN LOW POSITION. CALL LIGHT AT BEDSIDE.
--- NOTE | 2018-12-27 12:50 | NUR ---
PT EATING LUNCH IN STABLE CONDITION. RESPIRATIONS EVEN AND UNLABORED. BED IN LOW POSITION. CALL LIGHT AT BEDSIDE. WILL CONTINUE TO MONITOR.
--- NOTE | 2018-12-27 14:35 | NUR ---
PT WATCHING TV IN STABLE CONDITION. BED IN LOW POSITION. CALL LIGHT AT BEDSIDE. WILL CONTINUE TO MONITOR.
[2018-12-27 16:00] VITALS: BP 136/75
--- NOTE | 2018-12-27 16:03 | NUR ---
PT TALKING WITH FAMILY AT BEDSIDE. RESPIRATIONS EVEN AND UNLABORED. BED IN LOW POSITION. CALL LIGHT AT BEDSIDE. WILL CONTINUE TO MONITOR.
--- NOTE | 2018-12-27 18:01 | NUR ---
PT WATCHING TV IN STABLE CONDITION. WILL CONTINUE TO MONITOR.
--- NOTE | 2018-12-27 19:25 | NUR ---
RECEIVED BEDSIDE REPORT FROM AM SHIFT PAGE MATHEW, FOR PT'S CONTINUITY OF CARE. PT IS AAOX4, IS ON ROOM AIR, HAS RIGHT FA 20G SALINE LOCK, DENIES ANY PAIN AT THIS TIME. SAFETY MEASURES IN PLACE, CALL LIGHT IS WITHIN REACH. WILL MONITOR PT THROUGHOUT SHIFT.
--- NOTE | 2018-12-27 19:28 | NUR ---
GAVE REPORT TO CONCRETE PAVING SUPERVISOR NURSE NORBERTO FOR CONTINUITY OF CARE. PT IN STABLE CONDITION.
[2018-12-27] MEDS: HYDROcodone/APAP 5/325 MG 1 TAB TAB PO PRN (21:54)
[2018-12-27] MEDS: SIMVASTATIN 40 MG TAB PO SCH (21:54)
--- NOTE | 2018-12-27 21:54 | NUR ---
ADMINISTERED SCHEDULED PO MEDICATION SCHEDULED, PT C/O LEG PAIN 09/16, ADMINISTERED PRN PO PAIN MEDICATION ORDERED. HUNG SCHEDULED IV ABX ORDERED. PT TOLERATED THEM WELL. PT DENIES ANY OTHER NEEDS OF RIGHT NOW. WILL CONTINUE TO MONITOR PT.
[2018-12-28] VITALS: BP 136/66
--- NOTE | 2018-12-28 00:15 | NUR ---
VS CHECKED AND CHARTED. LEFT LEG CELLULITIS PHOTOGRAPHED TAKEN. PT DENIES ANY PAIN AT THIS TIME. WILL CONTINUE TO MONITOR PT.
--- NOTE | 2018-12-28 02:15 | NUR ---
MADE ROUNDS. PT LYING DOWN ASLEEP WITH NO SIGNS OF DISTRESS. WILL CONTINUE TO MONITOR.
--- NOTE | 2018-12-28 04:25 | NUR ---
MADE ROUNDS. PT AWAKE, DENIES ANY PAIN. PT'S NEEDS MET. WILL CONTINUE TO MONITOR PT.
[2018-12-28] MEDS: BLOOD GLUCOSE MONITORING 1 DEV DEV FS SCH ×4 (06:23→21:20)
--- NOTE | 2018-12-28 06:23 | NUR ---
BLOOD GLUCOSE CHECKED AND CHARTED. NO COVERAGE NEEDED. PT DENIES PAIN AND NOTHING NEEDED AT THIS TIME. WILL ENDORSE TO AM SHIFT RN FOR PT'S CONTINUITY OF CARE.
[2018-12-28 06:58] LABS: BASOPHILS % (AUTO) 0.7 % (0.0-2.0); EOSINOPHILS # (AUTO) 0.4 K/uL (0-0.4); HEMATOCRIT 38.1 % (36-48); HEMOGLOBIN 12.7 g/dL (12.0-16.0); LYMPHOCYTES # (AUTO) 2.2 K/uL (2.5-16.5); LYMPHOCYTES % (AUTO) 37.7 % (20.5-51.1); MEAN CORPUSCULAR HEMOGLOBIN 30 pg (27-31); MEAN CORPUSCULAR HGB CONC 33 g/dL (33-37); MEAN CORPUSCULAR VOLUME 90.5 fL (80-94); MONOCYTES # (AUTO) 0.6 K/uL (0.8-1.0); MONOCYTES % (AUTO) 9.8 % (1.7-9.3); NEUTROPHILS # (AUTO) 2.7 K/uL (1.8-7.7); NEUTROPHILS % (AUTO) 45.8 % (42.2-75.2); PLATELET COUNT (AUTO) 325 K/uL (140-450); RED BLOOD CELL COUNT(AUTO) 4.21 MIL/uL (4.20-5.40); RED CELL DISTRIBUTION WIDTH 14.2 % (11.6-13.7); WHITE BLOOD COUNT (AUTO) 5.9 K/uL (4.8-10.8)
--- NOTE | 2018-12-28 07:10 | NUR ---
RECEIVED REPORT FROM SMASH FIXER NURSE. PATIENT IS IN BED, AWAKE, ALERT AND ORIENTED X4. VERBALIZES NEEDS. IV INTACT AND PATENT TO RFA 20G. SAFETY MEASURES IN PLACE. CALL LIGHT WITHIN REACH.
[2018-12-28 07:29] LABS: ANION GAP 11.3 (8-16); CARBON DIOXIDE 30.2 mmol/L (21-32); CREATININE 0.8 mg/dL (0.6-1.3); POTASSIUM 4.5 mmol/L (3.5-5.1)
[2018-12-28 07:31] LABS: MAGNESIUM 1.9 mg/dL (1.8-2.4); PHOSPHORUS 3.5 mg/dL (2.5-4.9)
[2018-12-28 08:00] VITALS: BP 135/60
[2018-12-28] MEDS: metFORMIN 500 MG TAB PO SCH ×2 (08:46→16:37)
[2018-12-28] MEDS: PIOGLITAZONE 15 MG TAB PO SCH (08:47)
[2018-12-28] MEDS: GABAPENTIN 300 MG CAP PO SCH (08:48)
[2018-12-28] MEDS: metroNIDAZOLE 500 MG TAB PO SCH (08:48)
[2018-12-28] MEDS: FUROSEMIDE 20 MG TAB PO SCH (08:48)
[2018-12-28] MEDS: TOLTERODINE LA 4 MG CAPER PO SCH (08:49)
[2018-12-28] MEDS: LISINOPRIL 5 MG TAB PO SCH (08:49)
[2018-12-28] MEDS: PROPRANOLOL 20 MG TAB PO SCH (08:50)
--- NOTE | 2018-12-28 08:50 | NUR ---
MORNING MEDICATIONS GIVEN ORDERED. DENIES PAIN AT THIS TIME. WILL CONTINUE TO MONITOR.
[2018-12-28] MEDS: ENOXAPARIN 40 MG/0.4 ML SYR SUBQ SCH (08:51)
[2018-12-28] MEDS: VANCOMYCIN 1,250 MG in DEXTROSE 5% 250 ML IV SCH ×2 (10:47→21:31)
[2018-12-28] MEDS ORDERED: VANCOMYCIN PER PHARMACY MC PRN (11:05)
[2018-12-28] MEDS ORDERED: VANCOMYCIN 500 MG VIAL PO SCH (12:00)
[2018-12-28] MEDS: PHARMACY COMMENTS MC SCH ×2 (12:00→17:10)
--- NOTE | 2018-12-28 12:22 | NUR ---
BLOOD GLUCOSE CHECK DONE TO PT AND RESULT IS 185. WILL GIVE INSULIN COVERAGE.
[2018-12-28] MEDS: INSULIN LISPRO SLIDING SCALE 100 UNITS/ML VIAL SUBQ PRN ×3 (12:25→21:41)
[2018-12-28] MEDS: VANCOMYCIN 500 MG VIAL PO SCH ×3 (13:12→23:09)
--- NOTE | 2018-12-28 14:04 | NUR ---
MADE FOLLOW UP APPOINTMENT WITH PT'S PCP DR HOLLIS AT [phone] AD[address]ESS IS [address] [place] AT 2:30 PM
[2018-12-28 16:00] VITALS: BP 119/61
--- NOTE | 2018-12-28 16:37 | NUR ---
PT IS SEATED ON THE BED, BLOOD GLUCOSE CHECK DONE AND RESULT IS 168, AND 2 UNITS INSULIN AND ORAL MEDICATIONS WERE GIVEN ON THE LEFT UA. WILL MONITOR PT.
--- NOTE | 2018-12-28 17:11 | NUR ---
PT WAS GIVEN ORAL VANCOMYCIN AND TOLERATED IT. WILL MONITOR PT.
--- NOTE | 2018-12-28 19:20 | NUR ---
PATIENT IS IN STABLE CONDITION. REPORT GIVEN TO PHYSICALLY IMPAIRED TEACHER NURSE.
--- NOTE | 2018-12-28 19:23 | NUR ---
RECEIVED PATIENT REPORT AT BEDSIDE. PATIENT AWAKE, ALERT AND ORIENTED. PT ON ROOM AIR. NO S/S OF DISTRESS. PATIENT DENIES DISCOMFORT AT THIS TIME. WILL CONTINUE TO MONITOR
[2018-12-28 20:00] VITALS: BP 141/69
[2018-12-28] MEDS: SIMVASTATIN 40 MG TAB PO SCH (20:18)
[2018-12-28] MEDS: HYDROcodone/APAP 5/325 MG 1 TAB TAB PO PRN (21:46)
--- NOTE | 2018-12-28 23:00 | NUR ---
PT C/O PAIN IN HER IV SITE. ERYTHEMA NOTED. PT REPORTS PAIN WITH LINE FLUSH. NEW IV LINE STARTED. RIGHT WRIST 20G
[2018-12-29] VITALS: BP 113/75
--- NOTE | 2018-12-29 02:38 | NUR ---
PT ASLEEP IN BED. NO S/S OF DISTRESS NOTED
[2018-12-29] MEDS: VANCOMYCIN 500 MG VIAL PO SCH ×4 (06:08→23:47)
[2018-12-29] MEDS: PHARMACY COMMENTS MC SCH ×5 (06:09→23:47)
[2018-12-29] MEDS: BLOOD GLUCOSE MONITORING 1 DEV DEV FS SCH ×4 (06:10→20:36)
--- NOTE | 2018-12-29 07:15 | NUR ---
RECEIVED REPORT FROM PULP TESTER NURSE. PATIENT SITTING IN BED, JUST FINISHED A SHOWER. AAXO4, CALM, COOPERATIVE, SKIN COLOR APPROPRIATE TO ETHNICITY, WARM TO TOUCH. LEFT LEG INTACT CELLULITIS, +1 PITTING EDEMA NOTED ON BLE, OBESE PATIENT. IV SITE INTACT, PATENT, AND ON SALINE LOCK. RESPIRATIONS EVEN, UNLABORED, ON ROOM AIR. REVIEWED PLAN OF CARE WITH PATIENT. PATIENT VERBALIZED UNDERSTANDING. SAFETY MEASURES IN PLACE, CALL LIGHT WITHIN REACH. WILL CONTINUE TO MONITOR.
[2018-12-29 07:17] LABS: BASOPHILS % (AUTO) 0.6 % (0.0-2.0); EOSINOPHILS # (AUTO) 0.4 K/uL (0-0.4); EOSINOPHILS % (AUTO) 6.2 % (0.0-4.0); HEMATOCRIT 37.1 % (36-48); HEMOGLOBIN 12.1 g/dL (12.0-16.0); LYMPHOCYTES # (AUTO) 2.2 K/uL (2.5-16.5); LYMPHOCYTES % (AUTO) 35.7 % (20.5-51.1); MEAN CORPUSCULAR HEMOGLOBIN 30 pg (27-31); MEAN CORPUSCULAR HGB CONC 33 g/dL (33-37); MEAN CORPUSCULAR VOLUME 90.5 fL (80-94); MONOCYTES # (AUTO) 0.7 K/uL (0.8-1.0); MONOCYTES % (AUTO) 11.7 % (1.7-9.3); NEUTROPHILS # (AUTO) 2.8 K/uL (1.8-7.7); NEUTROPHILS % (AUTO) 45.8 % (42.2-75.2); PLATELET COUNT (AUTO) 290 K/uL (140-450); RED CELL DISTRIBUTION WIDTH 14.2 % (11.6-13.7); WHITE BLOOD COUNT (AUTO) 6.2 K/uL (4.8-10.8)
[2018-12-29 07:43] LABS: MAGNESIUM 1.8 mg/dL (1.8-2.4); PHOSPHORUS 3.8 mg/dL (2.5-4.9)
[2018-12-29 08:00] VITALS: BP 139/80
[2018-12-29 08:19] LABS: ANION GAP 11.5 (8-16); CARBON DIOXIDE 28.5 mmol/L (21-32); CREATININE 0.8 mg/dL (0.6-1.3)
[2018-12-29] MEDS: ENOXAPARIN 40 MG/0.4 ML SYR SUBQ SCH (08:54)
[2018-12-29] MEDS: GABAPENTIN 300 MG CAP PO SCH (08:55)
[2018-12-29] MEDS: TOLTERODINE LA 4 MG CAPER PO SCH (08:55)
[2018-12-29] MEDS: LISINOPRIL 5 MG TAB PO SCH (08:56)
[2018-12-29] MEDS: metFORMIN 500 MG TAB PO SCH ×2 (08:56→16:55)
[2018-12-29] MEDS: FUROSEMIDE 20 MG TAB PO SCH (08:56)
[2018-12-29] MEDS: PIOGLITAZONE 15 MG TAB PO SCH (08:56)
[2018-12-29] MEDS: PROPRANOLOL 20 MG TAB PO SCH (08:56)
--- NOTE | 2018-12-29 09:00 | NUR ---
PATIENT SITTING IN BED TALKING ON HER PHONE. NO DISTRESS NOTED. DENIES ANY PAIN. SCHEDULED MEDICATIONS DUE GIVEN. WILL CONTINUE TO MONITOR.
[2018-12-29] MEDS: VANCOMYCIN 1,250 MG in DEXTROSE 5% 250 ML IV SCH ×2 (10:23→22:17)
--- NOTE | 2018-12-29 10:25 | NUR ---
SCHEDULED MEDICATIONS DUE GIVEN. WILL CONTINUE TO MONITOR.
[2018-12-29] MEDS: INSULIN LISPRO SLIDING SCALE 100 UNITS/ML VIAL SUBQ PRN ×2 (12:48→20:40)
[2018-12-29] MEDS: FLUCONAZOLE 100 MG TAB PO SCH (12:50)
--- NOTE | 2018-12-29 12:54 | NUR ---
PATIENT SITTING IN BED WITH LUNCH TRAY IN FRONT. NO DISTRESS NOTED. DENIES ANY PAIN. COMPLAINS OF A YEAST INFECTION IN PERINEAL AREA, FLUCANOZOLE GIVEN PER MD ORDERS. OTHER SCHEDULED MEDICATIONS DUE GIVEN. WILL CONTINUE TO MONITOR.
[2018-12-29 16:00] VITALS: BP 100/57
--- NOTE | 2018-12-29 17:04 | NUR ---
PATIENT SITTING IN BED TALKING ON THE PHONE. NO DISTRESS NOTED. DENIES ANY PAIN. SCHEDULED MEDICATIONS DUE GIVEN. WILL CONTINUE TO MONITOR.
--- NOTE | 2018-12-29 19:25 | NUR ---
GAVE REPORT TO TAMPING MACHINE OPERATOR NURSE FOR CONTINUITY OF CARE. PATIENT IN STABLE CONDITION.
--- NOTE | 2018-12-29 19:26 | NUR ---
Received endorsement from AM shift RN. Patient A/Ox4, able to make needs known. French speaking. Ambulatory. Patient watching TV; introduced self, updated board. No SOB or distress noted. On Room Air. On Contact precautions for C. Diff; observed and maintained. IV site noted on Right wrist 20G saline locked. Skin intact but noted with BLE pitting edema. Bed in the lowest position. Call light within reach. Initial assessment done. Will continue to monitor.
[2018-12-29] MEDS: SIMVASTATIN 40 MG TAB PO SCH (20:35)
[2018-12-29] MEDS: HYDROcodone/APAP 5/325 MG 1 TAB TAB PO PRN (20:36)
--- NOTE | 2018-12-29 21:15 | NUR ---
Due meds given. Tolerated well.
--- NOTE | 2018-12-29 23:40 | NUR ---
Vitals taken. No distress noted. Patient asleep with eyes closed. Visible chest rise and fall noted.
[2018-12-30] VITALS: BP 130/46
--- NOTE | 2018-12-30 01:05 | NUR ---
Rounds done. Patient asleep. Visible chest rise and fall noted.
--- NOTE | 2018-12-30 03:10 | NUR ---
Checks made. Patient resting comfortably. Visible chest rise and fall noted.
--- NOTE | 2018-12-30 04:05 | NUR ---
Patient asleep. No distress noted.
[2018-12-30] MEDS: PHARMACY COMMENTS MC SCH ×2 (05:49→12:32)
[2018-12-30] MEDS: BLOOD GLUCOSE MONITORING 1 DEV DEV FS SCH ×2 (05:50→11:13)
[2018-12-30] MEDS: VANCOMYCIN 500 MG VIAL PO SCH ×2 (05:50→12:32)
--- NOTE | 2018-12-30 06:00 | NUR ---
Vitals stable. Due medications given. Will endorse to AM shift RN for continuity of care.
--- NOTE | 2018-12-30 07:10 | NUR ---
RECEIVED BEDSIDE REPORT FROM NIGHT NURSE. PT IN STABLE CONDITION. AAOX4. NO PAIN REPORTED, NO DISTRESS NOTED. IV IN PLACE SALINE LOCKED. RESPIRATIONS EVEN AND UNLABORED ON ROOM AIR. SKIN WARM AND DRY, CELULITIS ON LEFT LEG. SAFETY MEASURES IN PLACE. BED IN LOW POSITION. CALL LIGHT WITHIN REACH. WILL CONTINUE TO MONITOR.
[2018-12-30 07:23] LABS: BASOPHILS % (AUTO) 0.8 % (0.0-2.0); EOSINOPHILS # (AUTO) 0.3 K/uL (0-0.4); EOSINOPHILS % (AUTO) 5.4 % (0.0-4.0); HEMATOCRIT 38.4 % (36-48); HEMOGLOBIN 12.5 g/dL (12.0-16.0); LYMPHOCYTES # (AUTO) 2.2 K/uL (2.5-16.5); LYMPHOCYTES % (AUTO) 35.7 % (20.5-51.1); MEAN CORPUSCULAR HEMOGLOBIN 30 pg (27-31); MEAN CORPUSCULAR HGB CONC 33 g/dL (33-37); MEAN CORPUSCULAR VOLUME 90.6 fL (80-94); MONOCYTES # (AUTO) 0.6 K/uL (0.8-1.0); NEUTROPHILS # (AUTO) 3.1 K/uL (1.8-7.7); NEUTROPHILS % (AUTO) 49.1 % (42.2-75.2); PLATELET COUNT (AUTO) 327 K/uL (140-450); RED BLOOD CELL COUNT(AUTO) 4.24 MIL/uL (4.20-5.40); RED CELL DISTRIBUTION WIDTH 14.1 % (11.6-13.7); WHITE BLOOD COUNT (AUTO) 6.3 K/uL (4.8-10.8)
[2018-12-30 07:41] LABS: ALBUMIN 3.2 g/dL (3.4-5.0); ANION GAP 11.3 (8-16); CREATININE 0.7 mg/dL (0.6-1.3); POTASSIUM 4.3 mmol/L (3.5-5.1); TOTAL BILIRUBIN 0.5 mg/dL (0.0-1.0)
[2018-12-30 08:00] VITALS: BP 130/70
--- NOTE | 2018-12-30 09:42 | NUR ---
MEDICATIONS ADMINISTERED PER ORDER. PT TOLERATED WELL. WILL CONTINUE TO MONITOR.
[2018-12-30] MEDS: PIOGLITAZONE 15 MG TAB PO SCH (09:56)
[2018-12-30] MEDS: LISINOPRIL 5 MG TAB PO SCH (09:57)
[2018-12-30] MEDS: GABAPENTIN 300 MG CAP PO SCH (09:57)
[2018-12-30] MEDS: metFORMIN 500 MG TAB PO SCH (09:57)
[2018-12-30] MEDS: PROPRANOLOL 20 MG TAB PO SCH (09:57)
[2018-12-30] MEDS: FUROSEMIDE 20 MG TAB PO SCH (09:58)
[2018-12-30] MEDS: TOLTERODINE LA 4 MG CAPER PO SCH (09:58)
[2018-12-30] MEDS: VANCOMYCIN 1,250 MG in DEXTROSE 5% 250 ML IV SCH (10:05)
[2018-12-30] MEDS: ENOXAPARIN 40 MG/0.4 ML SYR SUBQ SCH (10:05)
[2018-12-30] MEDS: INSULIN LISPRO SLIDING SCALE 100 UNITS/ML VIAL SUBQ PRN (11:15)
--- NOTE | 2018-12-30 11:47 | NUR ---
MEDICATIONS ADMINISTERED PER ORDER. PT TOLERATED WELL. WILL CONTINUE TO MONITOR.
[2018-12-30] MEDS: FLUCONAZOLE 100 MG TAB PO SCH (12:32)
--- NOTE | 2018-12-30 13:21 | NUR ---
12/30/18 RD FOLLOW UP COMPLETED PLEASE REFER TO NUTRITION ASSESSMENT UNDER CARE ACTIVITY FOR ESTIMATED NUTRITIONAL NEEDS. [facility]. [facility] 60[facility] DIET TOLERATED 2. RD TO FOLLOW-UP 5-7 DAYS, LOW RISK FATMATA [address] RD
--- NOTE | 2018-12-30 14:25 | NUR ---
MEDICATIONS ADMINISTERED PER ORDER. PT TOLERATED WELL. WILL CONTINUE TO MONITOR.
[2018-12-30] MEDS ORDERED: METR250T2 PO (15:52)
[2018-12-30] MEDS ORDERED: SULF-59 PO (15:53)
[2018-12-30 16:00] VITALS: BP 132/75
--- NOTE | 2018-12-30 16:30 | NUR ---
PT READY FOR DISCHARGE AT THIS TIME IN STABLE CONDITION. DISCHARGE EDUCATION ON MEDICATION AND FOLLOW UP APPOINTMENT GIVEN TO PT. DISCHARGE PAPERWORK SIGNED BY PT. IV LINE REMOVED WITH MINIMAL BLOOD LOSS AND LUMEN INTACT. SKIN WARM AND DRY. IMPROVED CELLULITIS OF LEFT LEG. PICTURE TAKEN AND PUT ON FILE. RESPIRATIONS EVEN AND UNLABORED ON ROOM AIR. ID BANDS REMOVED. PT BELONGINGS GATHERED AND GIVEN TO PT. PT ABLE TO AMBULATE TO ROOM DOOR TO SIT IN WHEELCHAIR. ESCORTED OFF UNIT IN WHEELCHAIR BY OVI AND PICKED UP IN PRIVATE VEHICLE BY FAMILY MEMBERS.
== END 2018-12-30 16:30 | disposition home or self-care (01) | DRG 383 ==
LOC: MED 19:01 → MTU 22:38
PROVIDERS: ADMIT Internal Medicine Pulmonary Disease; ATTEND Internal Medicine Pulmonary Disease
DX: L03.116 Cellulitis of left lower limb (principal); E11.42 Type 2 diabetes mellitus with diabetic polyneuropathy; A04.72 Enterocolitis due to Clostridium difficile, not specified as recurrent; E87.8 Other disorders of electrolyte and fluid balance, not elsewhere classified; E11.65 Type 2 diabetes mellitus with hyperglycemia; E87.1 Hypo-osmolality and hyponatremia; E86.9 Volume depletion, unspecified; I10 Essential (primary) hypertension; E78.5 Hyperlipidemia, unspecified; Z88.1 Allergy status to other antibiotic agents; Z79.84 Long term (current) use of oral hypoglycemic drugs; Z79.899 Other long term (current) drug therapy
CPT/HCPCS: 36415; 80048; 80053; 80202; 82948; 83036; 83735; 84100; 85025; 87040; 87070; 87081; 93971; 96365; 99285; J0295; J0696; J1650; J1815; J3370; J3490; J7030; J7060; Q0092